=== PATIENT | male | born 1975 | race Caucasian/White ===

== ENCOUNTER 2020-08-12 19:01 | Inpatient (IN) | payer BC ==
[~2020-08-12] VITALS: Ht 188 cm; Wt 95.5 kg
[2020-08-12 19:01] VITALS: BP_SYST 242
[2020-08-12] MEDS ORDERED: ASPIRIN 81 MG TAB.CHEW PO ONE (19:15)
[2020-08-12] MEDS ORDERED: NITROGLYCERIN 250 ML IV ONE ×2 (19:15→19:45)
[2020-08-12] MEDS ORDERED: NITROGLYCERIN 1 INCH (GM) OINT. TD ONE (19:15)
[2020-08-12] MEDS ORDERED: NITROGLYCERIN 0.4 MG TAB.SUBL SL ONE (19:15)
[2020-08-12] MEDS ORDERED: MORPHINE 4 MG INJ. 4 MG/ML VIAL IVP ONE (19:30)
[2020-08-12] MEDS ORDERED: LORazepam 2 MG/ML VIAL IVP ONE (19:30)
[2020-08-12 19:35] LABS: BASOPHILS # (AUTO) 0.1 K/uL (0.0-0.2); BASOPHILS % (AUTO) 0.4 % (0.0-2.0); CALCIUM 8.7 mg/dL (8.4-11.0); CREATININE 1.12 mg/dL (0.55-1.30); EOSINOPHILS # (AUTO) 0.1 K/uL (0.0-0.4); EOSINOPHILS % (AUTO) 0.9 % (0.0-4.0); HEMOGLOBIN 14.9 g/dL (14.0-18.0); LYMPHOCYTES # (AUTO) 2.8 K/uL (1.0-5.5); LYMPHOCYTES % (AUTO) 21.4 % (20.5-51.5); MEAN CORPUSCULAR HEMOGLOBIN 32 pg (27-31); MEAN CORPUSCULAR HGB CONC 34 % (32-36); MEAN CORPUSCULAR VOLUME 93 fL (79.0-98.0); MONOCYTES # (AUTO) 1.1 K/uL (0.0-1.0); MONOCYTES % (AUTO) 8.2 % (1.7-9.3); NEUTROPHILS # (AUTO) 8.9 K/uL (1.8-7.7); NEUTROPHILS % (AUTO) 69.1 % (40.0-70.0); PLATELET COUNT (AUTO) 291 K/uL (130-430); POTASSIUM 3.4 mmol/L (3.5-5.1); RED BLOOD CELL COUNT(AUTO) 4.72 MIL/uL (4.2-6.2); RED CELL DISTRIBUTION WIDTH 13.1 % (9.0-15.0); WHITE BLOOD COUNT (AUTO) 12.9 K/uL (4.8-10.8)
[2020-08-12 19:41] LABS: ALBUMIN 4.5 g/dL (3.4-4.8); TOTAL BILIRUBIN 0.5 mg/dL (0.0-1.0)
[2020-08-12] MEDS ORDERED: IOHEXOL 350 mgI/mL, 150 ML INFUS..BTL IV ONE (20:31)
[2020-08-12 21:16] LABS: BARBITURATE, URINE NEGATIVE (NEG <=200); BENZODIAZEPINE, URINE NEGATIVE (NEG <=150); CANNABINOID, URINE NEGATIVE (NEG <=50); COCAINE, URINE NEGATIVE (NEG <=150); METHAMPHETAMINES SCREEN,URINE NEGATIVE (NEG <=500); OPIATE, URINE POSITIVE (NEG <=100); PHENCYCLIDINE SCREEN,URINE NEGATIVE (NEG <=25); UR TRICYCLIC ANTIDEPRESSANTS NEGATIVE (NEG <=300); URINE AMPHETAMINE NEGATIVE (NEG <=500); URINE METHADONE NEGATIVE (NEG <=200); URINE OXYCODONE SCREEN NEGATIVE (NEG <=100); URINE PROPOXYPHENE SCREEN NEGATIVE (NEG <=300)
[2020-08-12] MEDS ORDERED: cefTRIAXone 1 GM VIAL IM ONE (21:30)
[2020-08-12] MEDS ORDERED: ENOXAPARIN SODIUM 100 MG/ML SYRINGE SUBCUT ONE (21:45)
[2020-08-12] MEDS ORDERED: cefTRIAXone 1 GM IVPB PREMIX 50 ML IV ONE (21:45)
[2020-08-12] MEDS ORDERED: HYDROcodone/ACETAMIN 5-325 MG TAB (NORCO/ VICODIN) PO PRN (22:00)
[2020-08-12] MEDS ORDERED: LORazepam 2 MG/ML VIAL IVP PRN (22:00)
[2020-08-12] MEDS ORDERED: *LOVENOX 1MG/KG Q12H/PHARMACY XX ONE (22:00)
[2020-08-12] MEDS ORDERED: ACETAMINOPHEN 325 MG TABLET PO PRN (22:00)
[2020-08-12] MEDS: NORMAL SALINE 5 ML DISP.SYRIN IVF SCH (22:00)
[2020-08-12] MEDS ORDERED: HYDROcodone/ACETAMIN 10-325 MG TAB PO PRN (22:00)
[2020-08-12] MEDS ORDERED: ONDANSETRON HCL 4 MG/2 ML VIAL IVP PRN (22:00)
[2020-08-12] MEDS ORDERED: NALOXONE HCL 0.4 MG/ML AMP (NARCAN) IVP PRN ×2 (22:00)
[2020-08-12 22:53] VITALS: BP_SYST 146
[2020-08-13] VITALS (9 sets, daily range): BP systolic 132–163
[2020-08-13] MEDS: NORMAL SALINE 5 ML DISP.SYRIN IVF SCH ×3 (06:47→20:23)
[2020-08-13 07:03] LABS: BASOPHILS % (AUTO) 0.4 % (0.0-2.0); EOSINOPHILS # (AUTO) 0.1 K/uL (0.0-0.4); HEMATOCRIT 40.9 % (36-54); HEMOGLOBIN 13.8 g/dL (14.0-18.0); LYMPHOCYTES # (AUTO) 1.2 K/uL (1.0-5.5); LYMPHOCYTES % (AUTO) 13.9 % (20.5-51.5); MEAN CORPUSCULAR HEMOGLOBIN 32 pg (27-31); MEAN CORPUSCULAR HGB CONC 34 % (32-36); MEAN CORPUSCULAR VOLUME 94 fL (79.0-98.0); MONOCYTES # (AUTO) 0.9 K/uL (0.0-1.0); MONOCYTES % (AUTO) 10.5 % (1.7-9.3); NEUTROPHILS # (AUTO) 6.1 K/uL (1.8-7.7); NEUTROPHILS % (AUTO) 74.2 % (40.0-70.0); PLATELET COUNT (AUTO) 221 K/uL (130-430); RED BLOOD CELL COUNT(AUTO) 4.37 MIL/uL (4.2-6.2); WHITE BLOOD COUNT (AUTO) 8.3 K/uL (4.8-10.8)
[2020-08-13 07:54] LABS: ALANINE AMINOTRANSFERASE 30 U/L (12-78); ALBUMIN 3.7 g/dL (3.4-4.8); ANION GAP 9 (5-15); ASPARTATE AMINOTRANSFERASE 24 U/L (10-37); CALCIUM 8.4 mg/dL (8.4-11.0); CHLORIDE 105 mmol/L (98-107); CREATININE 0.87 mg/dL (0.55-1.30); GLUCOSE 109 mg/dL (70-99); PHOSPHORUS 2.8 mg/dL (2.7-4.5); POTASSIUM 3.7 mmol/L (3.5-5.1); SODIUM SERUM 142 mmol/L (136-145); THYROID STIMULATING HORMONE 3.38 uIu/mL (0.36-3.74); UREA NITROGEN, BLOOD 10 mg/dL (8-21)
[2020-08-13 08:10] LABS: GFR AFRICAN AMERICAN 121 mL/min (>90)
[2020-08-13 08:11] LABS: TOTAL BILIRUBIN 1.2 mg/dL (0.0-1.0)
[2020-08-13 09:27] LABS: CHOLESTEROL 216 mg/dL (<200); HDL CHOLESTEROL 73 mg/dL (>45); LDL CHOLESTEROL 128 mg/dL (<100); TRIGLYCERIDES 153 mg/dL (30-150)
[2020-08-13] MEDS ORDERED: ENOXAPARIN SODIUM 100 MG/ML SYRINGE SUBCUT ONE (17:00)
[2020-08-13] MEDS ORDERED: ALBUTEROL MDI INHALATION 8 GM INH INH PRN (17:45)
[2020-08-13] MEDS ORDERED: ALBUTEROL SULFATE 0.083% 2.5 MG/3 ML VIAL.NEB INH PRN (18:00)
[2020-08-13] MEDS ORDERED: *LOVENOX 1MG/KG Q12H/PHARMACY XX ONE ×2 (18:00→21:00)
[2020-08-13] MEDS: ZOLPIDEM TARTRATE 5 MG TABLET PO PRN (20:22)
[2020-08-13] MEDS: cefTRIAXone 1 GM IVPB PREMIX 50 ML IV SCH (20:22)
[2020-08-13] MEDS: ATORVASTATIN 20 MG TABLET PO SCH (20:22)
[2020-08-13] MEDS ORDERED: ATORVASTATIN 20 MG TABLET PO SCH (21:00)
[2020-08-14] VITALS: BP_SYST 134
[2020-08-14] MEDS: NORMAL SALINE 5 ML DISP.SYRIN IVF SCH ×3 (05:09→20:44)
[2020-08-14] MEDS: ENOXAPARIN SODIUM 100 MG/ML SYRINGE SUBCUT SCH ×2 (05:10→19:34)
[2020-08-14 06:40] LABS: BASOPHILS # (AUTO) 0.1 K/uL (0.0-0.2); BASOPHILS % (AUTO) 0.8 % (0.0-2.0); EOSINOPHILS # (AUTO) 0.1 K/uL (0.0-0.4); HEMATOCRIT 42.7 % (36-54); HEMOGLOBIN 14.5 g/dL (14.0-18.0); LYMPHOCYTES # (AUTO) 1.8 K/uL (1.0-5.5); LYMPHOCYTES % (AUTO) 25.1 % (20.5-51.5); MEAN CORPUSCULAR HEMOGLOBIN 32 pg (27-31); MEAN CORPUSCULAR HGB CONC 34 % (32-36); MEAN CORPUSCULAR VOLUME 93 fL (79.0-98.0); MONOCYTES # (AUTO) 0.7 K/uL (0.0-1.0); MONOCYTES % (AUTO) 9.5 % (1.7-9.3); NEUTROPHILS # (AUTO) 4.5 K/uL (1.8-7.7); NEUTROPHILS % (AUTO) 62.6 % (40.0-70.0); PLATELET COUNT (AUTO) 222 K/uL (130-430); RED BLOOD CELL COUNT(AUTO) 4.58 MIL/uL (4.2-6.2); RED CELL DISTRIBUTION WIDTH 13.1 % (9.0-15.0); WHITE BLOOD COUNT (AUTO) 7.1 K/uL (4.8-10.8)
[2020-08-14 08:00] VITALS: BP_SYST 158
[2020-08-14 08:35] LABS: ERYTHROCYTE SEDIMENTATION RATE 17 MM/HR (0-15)
[2020-08-14 08:43] LABS: CALCIUM 8.7 mg/dL (8.4-11.0); CREATININE 0.96 mg/dL (0.55-1.30); POTASSIUM 3.9 mmol/L (3.5-5.1)
[2020-08-14 09:37] LABS: C-REACTIVE PROTEIN QUANT 3.1 mg/dL (0-0.5)
[2020-08-14] MEDS ORDERED: LOSARTAN POTASSIUM 50 MG TABLET (COZAAR) PO ONE (09:45)
[2020-08-14 12:04] VITALS: BP_SYST 148
[2020-08-14 16:58] VITALS: BP_SYST 140
[2020-08-14 20:00] VITALS: BP_SYST 147
[2020-08-14] MEDS: cefTRIAXone 1 GM IVPB PREMIX 50 ML IV SCH (20:43)
[2020-08-14] MEDS: ATORVASTATIN 20 MG TABLET PO SCH (20:44)
[2020-08-14] MEDS: ZOLPIDEM TARTRATE 5 MG TABLET PO PRN (21:46)
[2020-08-15 00:21] VITALS: BP_SYST 145
[2020-08-15] MEDS: NORMAL SALINE 5 ML DISP.SYRIN IVF SCH ×2 (06:26→13:23)
[2020-08-15 06:27] LABS: BASOPHILS % (AUTO) 0.7 % (0.0-2.0); EOSINOPHILS # (AUTO) 0.2 K/uL (0.0-0.4); EOSINOPHILS % (AUTO) 3.8 % (0.0-4.0); HEMATOCRIT 43.1 % (36-54); HEMOGLOBIN 14.6 g/dL (14.0-18.0); LYMPHOCYTES # (AUTO) 1.6 K/uL (1.0-5.5); LYMPHOCYTES % (AUTO) 25.1 % (20.5-51.5); MEAN CORPUSCULAR HEMOGLOBIN 32 pg (27-31); MEAN CORPUSCULAR HGB CONC 34 % (32-36); MEAN CORPUSCULAR VOLUME 94 fL (79.0-98.0); MONOCYTES # (AUTO) 0.7 K/uL (0.0-1.0); MONOCYTES % (AUTO) 10.9 % (1.7-9.3); NEUTROPHILS # (AUTO) 3.9 K/uL (1.8-7.7); NEUTROPHILS % (AUTO) 59.5 % (40.0-70.0); PLATELET COUNT (AUTO) 231 K/uL (130-430); RED BLOOD CELL COUNT(AUTO) 4.59 MIL/uL (4.2-6.2); RED CELL DISTRIBUTION WIDTH 12.6 % (9.0-15.0); WHITE BLOOD COUNT (AUTO) 6.6 K/uL (4.8-10.8)
[2020-08-15] MEDS: ENOXAPARIN SODIUM 100 MG/ML SYRINGE SUBCUT SCH ×2 (06:27→17:08)
[2020-08-15 08:00] VITALS: BP_SYST 153
[2020-08-15 08:09] LABS: ALBUMIN 3.4 g/dL (3.4-4.8); CREATININE 0.85 mg/dL (0.55-1.30); POTASSIUM 4.1 mmol/L (3.5-5.1); TOTAL BILIRUBIN 0.6 mg/dL (0.0-1.0)
[2020-08-15] MEDS ORDERED: LOSARTAN POTASSIUM 50 MG TABLET (COZAAR) PO SCH (09:00)
[2020-08-15 10:06] LABS: C-REACTIVE PROTEIN QUANT 1.7 mg/dL (0-0.5)
[2020-08-15 10:37] LABS: ERYTHROCYTE SEDIMENTATION RATE 18 MM/HR (0-15)
[2020-08-15 11:07] LABS: ANTI NUCLEAR AB WITH REFLEX Negative (Negative)
[2020-08-15 11:32] VITALS: BP_SYST 137
[2020-08-15] MEDS ORDERED: LOSA50TA3 PO (13:50)
[2020-08-15] MEDS ORDERED: APIX5TAB PO (13:50)
[2020-08-15] MEDS ORDERED: LIP20 PO (13:50)
[2020-08-15] MEDS ORDERED: LOVI100 SUBCUT (13:52)
[2020-08-15 15:25] VITALS: BP_SYST 137
[2020-08-15 15:38] VITALS: BP_SYST 138
[2020-08-17 12:06] LABS: ANTITHROMBIN III ACTIVITY 97 % (75-135); ANTITHROMBIN III AG 85 % (72-124); PROTEIN S ACTIVITY 124 % (63-140)
[2020-08-20 12:06] LABS: PROTEIN C ANTIGEN 116 % (60-150)
== END 2020-08-15 17:30 | disposition home or self-care (01) | DRG 299 ==
LOC: SED 19:01 → STU 21:26
PROVIDERS: ADMIT Preventive Medicine Preventive Medicine/Occupational Environmental Medicine; ATTEND Preventive Medicine Preventive Medicine/Occupational Environmental Medicine
DX: I82.441 Acute embolism and thrombosis of right tibial vein (principal); J96.00 Acute respiratory failure, unspecified whether with hypoxia or hypercapnia; J18.9 Pneumonia, unspecified organism; J98.11 Atelectasis; E87.6 Hypokalemia; R73.9 Hyperglycemia, unspecified; I10 Essential (primary) hypertension; Z20.822 Contact with and (suspected) exposure to COVID-19; M79.10 Myalgia, unspecified site
CPT/HCPCS: 36415; 71045; 71275; 76376; 80048; 80053; 80061; 80307; 81403; 81407; 81479; 83735; 83880; 84100; 84443; 84484; 85025; 85300; 85301; 85302; 85306; 85379; 85651-TC; 86038; 86140; 87040-TC; 87086; 93005; 93306; 93971; 94010; 96365; 96372; 96375; 99291; G0378; J0696; J1650; J2060; J2270; J3490; Q9967; U0003